=== PATIENT | female | born 1965 | race Caucasian/White ===

== ENCOUNTER → 2025-08-08 11:18 | Outpatient (CLI) | payer OTHER, SELFPAY ==
[2025-08-08 11:34] LABS: Appearance Urine UA CLEAR; Bilirubin Urine UA NEGATIVE (NEGATIVE); Color Urine UA YELLOW; Glucose Urine UA NEGATIVE (Negative); Ketones Urine UA NEGATIVE (NEGATIVE); Leukocyte Esterase Urine UA NEGATIVE (NEGATIVE); Nitrite Urine UA NEGATIVE (Negative); Occult Blood Urine UA TRACE-INTACT (Negative); Protein Urine UA NEGATIVE (Negative); Specific Gravity Urine UA <=1.005 (1.000-1.035); Urobilinogen Urine UA 0.2 E.U./dL (0.2)
[2025-08-08 11:51] LABS: pH Urine UA 6.5 (4.5-8.0)
[2025-08-08 11:57] LABS: Culture Indicated Urine Cult Not Indicated
== END ==
PROVIDERS: Visit Provider Nurse Practitioner Family
DX: N94.9 Unspecified condition associated with female genital organs and menstrual cycle (principal); R30.0 Dysuria
CPT/HCPCS: 81001; 87210